=== PATIENT | female | born 1940 ===

== ENCOUNTER 2020-02-01 13:36 | Inpatient (IN) | payer OTHER ==
[~2020-02-01] VITALS: Ht 154.9 cm; Wt 59.0 kg
[2020-02-01] MEDS ORDERED: DULCOLAX5 MG (14:02)
[2020-02-04] MEDS ORDERED: PERCOCET 5-3251 EACH PO (11:45)
== END 2020-02-04 12:28 | disposition home or self-care (01) | DRG 331 ==
LOC: ER 13:36 → SURG 14:39
PROVIDERS: ADMIT Surgery; ATTEND Surgery
PROC: 0D1L0Z4 Bypass Transverse Colon to Cutaneous, Open Approach (ICD-10-PCS; principal; 2020-02-02 12:00)
DX: K56.690 Other partial intestinal obstruction (principal); C53.9 Malignant neoplasm of cervix uteri, unspecified